=== PATIENT | male | born 1995 | race Caucasian/White ===

== ENCOUNTER 2023-03-30 12:27 | Emergency (ER) | payer OTHER ==
--- OUTSIDE RECORDS SUMMARY | 2023-03-30 12:30 | XMS REPORT | Continuity of Care Document ---
:1995 Author Organization [facility] t Address [address] [place] [address] Care Team Providers Name Role Phone Unavailable Unavailable Unavailable Problems This patient has no known problems. Allergies, Adverse Reactions, Alerts This patient has no known allergies or adverse reactions. Medications This patient has no known medications. Procedures This patient has no known procedures. Encounters Start End Encounter Admission Attending Care Care Encounter Source Date/Time Date/Time Type Type Clinicians Facility Department ID 2023-01-09 2023-01-09 Outpatient [facility] 08:59:38 08:59:38 [id number] [facility] 2023-01-08 2023-01-08 Outpatient [facility] 08:34:42 08:34:42 [id number] [facility] 2023-01-01 2023-01-01 Outpatient [facility] 08:15:46 08:15:46 [id number] [facility] 2022-10-16 2022-10-16 Outpatient [facility] 08:37:41 08:37:[id number] [place] [address] Results Test Description Test Time Test Comments Results Result Comments Source TSH, THIRD GENERATION 2023-01-11 01:46:44 Test Item Value Reference Range Interpretation Comme nts TSH, THIRD GENERATION (test 2.460 UIU/ML 0.400-4.100 UNLESS OTHERWISE INDICATED, code = 2821) ALL TESTING PER FORMED AT CL[facility] [employer], [facility]. [address] [place] [address] [id number] WATCH REPAIR PERSON: Stephenie ARMENTA [id number] [facility]. [id number] LIPID [id number] 23:42:43 Test Item Value Reference Range Interpretation Comments CHOLESTEROL (test 161 MG/DL <200 code = 2210) TRIGLYCERIDES (test 77 MG/DL <150 code = 2232) HDL CHOLESTEROL (test 34 MG/DL >39 L code = 2220) CALC LDL CHOL (test 110 MG/DL <100 H NOTE: C ALCULATED LDL code = 2237) IS BASED ON MONIKA-DALEY METHOD WHICHINCLUDES ADJUSTABLE TRIGLYCERIDE:VL DL CHOLESTEROL RAT IO.THIS FACTOR VARIES B Y MEASURED TRIGLY CERIDE AND NON-HDLCHOL ESTEROL CONCENTRATIONS WITH INCREASED CALCU LATED LDL SEENIN HIGH ER TRIGLYCERIDE OR LOWER NON-HDL SPECIME NS. FOR MOREINFORMATION , SEE CLIENT ANNOUNCE MENT AT [email or web address] [email or web address] [email or web address] LDL/HDL 3.24 RATIO <3.55 (test code = 2238) COMPREHENSIVE METABOLIC [id number] 05:43:54 Test Item Value Reference Range Interpretation Comments GLUCOSE (test code = 93 MG/DL 70-99 2216) BUN (test code = 15 MG/DL 6-20 2207) CREATININE (test 1.00 MG/DL 0.80-1.40 code = 2214) eGFR (2020 CKD-EPI) 106 >60 (test code = 02343) ML/MIN/1.73 CALC BUN/CREAT (test 15 RATIO 6-28 code = 2235) SODIUM (test code = 142 MEQ/L 041-527 2852) POTASSIUM (test code 4.7 MEQ/L 3.5-5.4 = 222) CHLORIDE (test code 106 MEQ/L 95-107 = 2214) CARBON DIOXIDE (test 22 MEQ/L 19-31 code = 2206) CALCIUM (test code = 9.7 MG/DL 8.5-10.5 2208) PROTEIN, TOTAL (test 6.8 G/DL 6.1-8.3 code = 2229) ALBUMIN (test code = 4.7 G/DL 3.5-5.2 2200) CALC GLOBULIN (test 2.1 G/DL 1.9-3.7 code = 2240) CALC A/G RATIO (test 2.2 RATIO 1.0-2.6 code = 2234) BILIRUBIN, TOTAL 0.5 MG/DL See_Comment [Automated message] (test code = 2207) The [employer] [address] [employer] which generated this result transmit raz reference range : <=1.2. The refe rence range was not u sed to interpret th is result as normal/abnormal . ALKALINE PHOSPHATASE 96 U/L 40-115 (test code = 4) AST (test code = 34 U/L 9-50 2217) ALT (test code = 54 U/L 5-50 H 2218) LIPID [id number] 05:43:54 Test Item Value Reference Range Interpretation Comments CHOLESTEROL (test 203 MG/DL <200 H code = 2210) TRIGLYCERIDES (test 102 MG/DL <150 code = 2232) HDL CHOLESTEROL (test 31 MG/DL >39 L code = 2220) CALC LDL CHOL (test 150 MG/DL <100 H NOTE: C ALCULATED LDL code = 2237) IS BASED ON MONIKA-DALEY METHOD WHICHINCLUDES ADJUSTABLE TRIGLYCERIDE:VL DL CHOLESTEROL RAT IO.THIS FACTOR VARIES B Y MEASURED TRIGLY CERIDE AND NON-HDLCHOL ESTEROL CONCENTRATIONS WITH INCREASED CALCU LATED LDL SEENIN HIGH ER TRIGLYCERIDE OR LOWER NON-HDL SPECIME NS. FOR MOREINFORMATION , SEE CLIENT ANNOUNCE MENT AT [email or web address] [email or web address] LDL/HDL 4.84 RATIO <3.55 H UNLESS O THERWISE (test code = 2237) INDICATED , ALL TESTING PERFORMED AT [facility] PATHOLOGY [facility], [address] DIRECTOR: Stephenie ARMENTA RANDY NUMBER [id number] [place]. [id number] HEMOGLOBIN [id number] 03:22:23 Test Item Value Reference Range Interpretation Comments HEMOGLOBIN A1c (test 5.9 % 4.2-5.6 H AMERIC AN DIABETES code = 24110) ASSOCIATION IDE[employer] FOR HGB A1C: PREDIABETES/INC REASED RISK . . . . . . . 5.7 -6.4% DIAGNOSIS OF DI ABETES . . . . . . . . . >=6 .5% WITH CONFIRMATION OR APPROPRIATE SYMPTOMS NOTE: ASSAY MAY BE AFFECTED BY HEMOGLOBINOPATH IES (SICKLE CELL ANEMIA, S- C DISEASE, OTHERS) OR SHEA FICIALLY LOWERED BY DECR EASED RED CELL SURVIVAL ( HEMOLYTIC ANEMIAS, BLOOD LOSS, ETC.). CONSIDER ALTERN ATE TESTING OR LABORATORY C ONSULTATION.
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
[2023-03-30] MEDS ORDERED: KETOROLAC 30 MG/ML INJ ONE (13:21)
[2023-03-30] MEDS ORDERED: DIAZEPAM 5 MG TABLET ONE (13:22)
[2023-03-30 13:49] VITALS: TEMP 98.1
[2023-03-30 13:50] VITALS: BP 131/84; O2SAT 96
== END 2023-03-30 13:34 | disposition home or self-care (01) ==
LOC: ER 12:27
DX: M79.10 Myalgia, unspecified site (principal); V59.50XA Passenger in pick-up truck or van injured in collision with unspecified motor vehicles in traffic accident, initial encounter
CPT/HCPCS: 96372; 99284